=== PATIENT | female | born 1960 | race Caucasian/White ===

== ENCOUNTER 2018-07-02 17:29 | Emergency (ER) | payer BC ==
[2018-07-02 18:00] VITALS: BP 135/80
--- NOTE | 2018-07-02 18:10 | UC ---
UC General HPI - HPI Summary HPI Summary: 2 DAYS AGO, PT DROPPED A SMALL DORMITORY REFRIGERATOR ON HER L CORTES. SHE NOTES SOME SWELLING, BRUISING AND A DENT IN THE SKIN. AREA IS A LITTLE PINK WELL. BLE'S PINK FROM DIABETES BUT THIS IS WORSE. NO CALF PAIN. NO FEVER. HX IDDM SO WANTS TO GET IT CHECKED. - History of Current Complaint Chief Complaint: UCSkin Stated Complaint: LEFT LEG BRUISE Time Seen by Provider: 07/02/18 18:01 Hx Obtained From: Patient Hx Last Menstrual Period: 02/2018 Timing: Constant Pain Intensity: 3 Associated Signs & Symptoms: Negative: Fever - Allergy/Home Medications Allergies/Adverse Reactions: Allergies Allergy/AdvReac Type Severity Reaction Status Date / Time epinephrine Allergy See Comment Verified 07/02/18 17:49 simvastatin Allergy Swelling Verified 07/02/18 17:49 liraglutide [From Victoza] AdvReac Stomach Verified 07/02/18 17:49 Cramps Home Medications: Home Medications Acetaminophen [Extra Strength Non-Aspirin] 1,000 mg PO Q6H PRN 07/02/18 [ History Confirmed 07/02/18] Cyanocobalamin (Vitamin B-12) [Vitamin B-12] 500 mcg PO DAILY 07/02/18 [History Confirmed 07/02/18] Multivitamin [Multivitamins] 1 cap PO DAILY 07/02/18 [History Confirmed 07/02/18 ] Solifenacin Succinate [Vesicare] 5 mg PO DAILY 07/02/18 [History Confirmed 07/02] glipiZIDE [Glipizide ER] 10 mg PO BID 07/02/18 [History Confirmed 07/02/18] PMH/Surg Hx/FS Hx/Imm Hx Endocrine History: Diabetes, Dyslipidemia Cardiovascular History: Hypertension - Surgical History Surgical History: Yes Surgery Procedure, Year, and Place: gall bladder, neck fusion, breast reduction - Family History Known Family History: Positive: Non-Contributory - Social History Alcohol Use: Rare Substance Use Type: None Smoking Status (MU): Never Smoked Tobacco Review of Systems All Other Systems Reviewed And Are Negative: No Constitutional: Negative: Fever Skin: Positive: Rash - PINK OVER CORTES, Bruising - CORTES Respiratory: Negative: Shortness Of Breath Cardiovascular: Negative: Chest Pain Musculoskeletal: Positive: Edema - CORTES. Negative: Arthralgia, Decreased ROM Neurological: Negative: Weakness, Paresthesia, Numbness Physical Exam Triage Information Reviewed: Yes Appearance: Well-Appearing Vital Signs: Initial Vital Signs Temp 98.5 F 07/02/18 17:55 Pulse 95 07/02/18 17:55 Resp 18 07/02/18 17:55 BP 135/80 07/02/18 17:55 Pulse Ox 96 07/02/18 17:55 Vital Signs Reviewed: Yes Eyes: Positive: Conjunctiva Clear ENT: Positive: Normal ENT inspection Neck: Positive: Supple Respiratory: Positive: Lungs clear Cardiovascular: Positive: RRR Abdomen Description: Positive: Nontender Bowel Sounds: Positive: Present Musculoskeletal: Positive: Other: - LLE: mild swelling over the cortes with a central indentation and bruising. The area is tender and has peripheral pink discolration that is greated than the R cortes. The calf has no cords or tenderness. The leg has full s/v/m function. Neurological: Positive: Alert Psychological: Positive: Age Appropriate Behavior Skin Exam: Normal Diagnostics - Radiology No standard instances Radiology Interpretation Completed By: ED Physician - L tib/fib=nad Course/Dx - Differential Dx - Multi-Symptom Differential Diagnoses: Other - no fx on xray. no concern for compartment syndrom. no concern for dvt, swelling is over the cortes and the calf in non tender and has no cords. - Diagnoses Provider Diagnosis: Cellulitis of left lower leg, Contusion of left lower leg Discharge - Sign-Out/Discharge Documenting (check all that apply): Patient Departure All imaging exams completed and their final reports reviewed: No - Discharge Plan Condition: Stable Disposition: HOME Prescriptions: Cephalexin CAP* [Keflex CAP*] 500 mg PO TID 10 Days #30 cap Patient Education Materials: Cellulitis (DC), Contusion in Adults (ED) Referrals: Bárbara Leija MD [Primary Care Provider] - 3 Days - Billing Disposition and Condition Condition: STABLE Disposition: Home - Attestation Statements Provider Attestation: Per institutional requirements, I have reviewed the chart, however, I was not consulted specifically or made aware of this patient by the midlevel provider. I did not personally evaluate, interact with , or disposition this patient.
--- NOTE | 2018-07-03 08:11 | UC ---
- EKG/XRAY/CT XRAY: leg - Left lower leg negative for fracture. Soft tissue swelling Course/Dx - Diagnoses Provider Diagnoses: Cellulitis of left lower leg, Contusion of left lower leg Discharge - Sign-Out/Discharge Documenting (check all that apply): Post-Discharge Follow Up All imaging exams completed and their final reports reviewed: Yes - Discharge Plan Condition: Stable Disposition: HOME Prescriptions: Cephalexin CAP* [Keflex CAP*] 500 mg PO TID 10 Days #30 cap Patient Education Materials: Cellulitis (DC), Contusion in Adults (ED) Referrals: Bárbara Leija MD [Primary Care Provider] - 3 Days - Billing Disposition and Condition Condition: STABLE Disposition: Home
== END 2018-07-02 19:02 | disposition home or self-care (01) ==
LOC: UCCORT 17:29
DX: S80.12XA Contusion of left lower leg, initial encounter (principal); L03.116 Cellulitis of left lower limb; W20.8XXA Other cause of strike by thrown, projected or falling object, initial encounter; Y92.9 Unspecified place or not applicable; R60.0 Localized edema; E11.9 Type 2 diabetes mellitus without complications; Z79.84 Long term (current) use of oral hypoglycemic drugs; E78.5 Hyperlipidemia, unspecified; I10 Essential (primary) hypertension; Z88.8 Allergy status to other drugs, medicaments and biological substances
CPT/HCPCS: 99212; G0463

== ENCOUNTER 2019-02-19 15:05 | Emergency (ER) | payer BC ==
[2019-02-19 15:21] VITALS: BP 144/82
--- NOTE | 2019-02-19 15:50 | UC ---
Eye Complaint HPI - HPI Summary HPI Summary: 58-year-old female who has had some swelling underneath both orbits and itchy eyes today. She recently, on her own, stopped using her Flonase and Lisbeth because she figured it was winter time and she would need them anymore. - History of Current Complaint Chief Complaint: UCEye Stated Complaint: BILATERAL EYE COMPLAINT Time Seen by Provider: 02/19/19 15:42 Hx Obtained From: Patient Hx Last Menstrual Period: 02/2018 ?: No Onset/Duration: Gradual Onset Timing: Constant Severity Initially: Mild Severity Currently: Mild Pain Intensity: 5 Location of Injury: Other - No injury. Aggravating Factor(s): Nothing Alleviating Factor(s): Nothing Associated Signs And Symptoms: Positive: Negative - Allergies/Home Medications Allergies/Adverse Reactions: Allergies Allergy/AdvReac Type Severity Reaction Status Date / Time epinephrine Allergy See Comment Verified 02/19/19 15:22 simvastatin Allergy Swelling Verified 02/19/19 15:22 liraglutide [From Victoza] AdvReac Stomach Verified 02/19/19 15:22 Cramps Home Medications: Home Medications Megestrol TAB* [Megace TAB*] 20 mg PO BID 02/19/19 [History Confirmed 02/19/19] PMH/Surg Hx/FS Hx/Imm Hx Previously Healthy: Yes Endocrine History: Dyslipidemia - Surgical History Surgical History: Yes Surgery Procedure, Year, and Place: gall bladder, neck fusion, breast reduction , d&c - Family History Known Family History: Positive: Non-Contributory - Social History Alcohol Use: Rare Substance Use Type: None Smoking Status (MU): Never Smoked Tobacco Review of Systems All Other Systems Reviewed And Are Negative: Yes Eyes: Positive: Other - Mild edema to the inferior orbit bilaterally. Is Patient Immunocompromised?: No Physical Exam Triage Information Reviewed: Yes Appearance: Well-Appearing, No Pain Distress, Well-Nourished Vital Signs: Initial Vital Signs Temp 98.1 F 02/19/19 15:15 Pulse 91 02/19/19 15:15 Resp 18 02/19/19 15:15 BP 144/82 02/19/19 15:15 Pulse Ox 97 02/19/19 15:15 Vital Signs Reviewed: Yes Eyes: Positive: Conjunctiva Clear, Other: - Rosanna, EOMI, no drainage. ENT: Positive: Hearing grossly normal, Pharynx normal, Nasal drainage - Clear nasal coryza., TMs normal, Uvula midline Neck: Positive: Supple, Nontender, No Lymphadenopathy Respiratory: Positive: Lungs clear, Normal breath sounds, No respiratory distress, No accessory muscle use Cardiovascular: Positive: RRR, No Murmur, Pulses Normal, Brisk Capillary Refill Musculoskeletal Exam: Normal Neurological Exam: Normal Psychological Exam: Normal Skin: Positive: Other - Patient has mild inferior orbital edema. Eye Complaint Course/Dx - Course Course Of Treatment: I think the patient is having her regular flareup of allergies symptoms because she stopped her Flonase and Lisbeth. I advised her to restart these and definite follow-up with her primary care provider as needed. - Differential Dx/Diagnosis Provider Diagnosis: Allergic rhinitis Discharge ED - Sign-Out/Discharge Documenting (check all that apply): Patient Departure All imaging exams completed and their final reports reviewed: No Studies - Discharge Plan Condition: Good Disposition: HOME Patient Education Materials: Allergic Rhinitis (DC) Referrals: Bárbara Leija MD [Primary Care Provider] - Additional Instructions: Start your Flonase as directed and Lisbeth as directed. Definite follow-up with your primary care provider early next week if no improvement in symptoms or if worsening symptoms. - Billing Disposition and Condition Condition: GOOD Disposition: Home - Attestation Statements Provider Attestation: I was available for consult. This patient was seen by the [facility]. The patient was not presented to, seen by, or examined by me. -Leonard
== END 2019-02-19 15:54 | disposition home or self-care (01) ==
LOC: UCCORT 15:05
DX: J30.9 Allergic rhinitis, unspecified (principal); Z88.8 Allergy status to other drugs, medicaments and biological substances
CPT/HCPCS: 99212; G0463